=== PATIENT | male | born 1945 | race Caucasian/White ===

== ENCOUNTER 2022-12-13 12:08 | Outpatient (CLI) | payer MEDICARE | END 2022-12-13 12:09 | disposition home or self-care (01) | LOC: CSHRAD 12:08 | PROVIDERS: ATTEND Psychiatry & Neurology Neurology | DX: M48.061 Spinal stenosis, lumbar region without neurogenic claudication (principal) | CPT/HCPCS: 36415; 80053; 82525; 82607; 82746; 84155; 84165; 84207; 84425; 84443; 85025; 86780 ==

== ENCOUNTER 2022-12-19 08:02 | Outpatient (CLI) | payer MEDICARE | END 2022-12-19 08:03 | disposition home or self-care (01) | LOC: CSHMRI 08:02 | PROVIDERS: ATTEND Psychiatry & Neurology Neurology | DX: M48.061 Spinal stenosis, lumbar region without neurogenic claudication (principal); M47.816 Spondylosis without myelopathy or radiculopathy, lumbar region | CPT/HCPCS: 72148 ==